=== PATIENT | male | born 1935 | race Caucasian/White ===

== ENCOUNTER → 2019-06-21 16:22 | Outpatient (CLI) | payer MEDICARE, SELFPAY ==
--- NOTE | ~2019-06-21 | XR_ITS ---
XR chest 2V DATE: 06/21/2019 16:34 INDICATION: PA and lateral views TECHNIQUE: PA and lateral views COMPARISON: 04/02/2015 2 view chest FINDINGS: Normal heart size. Aortic calcification and mild tortuosity. No hilar or mediastinal enla rgement. No pulmonary infiltrate or consolidation, pulmonary vascular congestion, pleural effusion o r pneumothorax. Diffuse osteopenia. Degenerative spurring of the thoracic spine. IMPRESSION: No active cardiopulmonary disease Aortic atherosclerosis Reviewed, dictated and finalized at location B.
== END ==
PROVIDERS: PCP Internal Medicine; Visit Provider Internal Medicine
DX: I70.0 Atherosclerosis of aorta (principal); R49.0 Dysphonia; R63.4 Abnormal weight loss
CPT/HCPCS: 71046

== ENCOUNTER 2019-06-29 13:24 | Outpatient (CLI) | payer MEDICARE, SELFPAY ==
--- NOTE | ~2019-06-29 | CT_ITS ---
EXAMINATION: CT abdomen pelvis wo con DATE: 06/29/2019 13:45 INDICATION: Left lower quadrant abdominal pain for 2 weeks. TECHNIQUE: Computed tomography (CT) of the abdomen and pelvis was performed without intravenous contr ast. Automated exposure control and iterative reconstruction technique were employed. Exam dose: 426 .25 mGy-cm total exam DLP. COMPARISON: None. FINDINGS: Middle lobe calcified pulmonary granuloma. Probable small calcified right lower lobe pulmon mary granuloma. There is mild discoid atelectasis or more likely scarring in the middle lobe and lingu la. No infiltrate or consolidation in the lower lung zones. Normal heart size. No pericardial or pleural effusion. There is extensive metastatic disease throughout the liver. There is a huge up to 12 x 12 x 14.5 cm h eterogeneous mass with multiple areas of low attenuation in the left upper quadrant, contiguous with the pancreas, suspicious for a large pancreatic malignancy. The mass is contiguous with the posterior wall of the upper body of the stomach. There are numerous smaller masses which extend into the left perinephric region, likely metastatic le sions. There is prominent left proximal periaortic lymphadenopathy. There are varices, suggesting portal venous hypertension. There is surface nodularity of liver, which is likely due to cirrhosis in combination with extensive metastatic disease. Up to 6.5 x 8.5 cm upper pole right renal cyst. Smaller bilateral renal cysts. No renal calculus or h ydroureteronephrosis is evident. Small calculi are suggested in the dependent aspect of the urinary b ladder. There is prostate enlargement and calcification. There is extensive calcification of the abdominal aorta and at the origin of the left renal artery bu t no abdominal aortic aneurysm. There is mild free fluid in the dependent pelvis. Diverticulosis of the left colon. No bowel obstruction. Bilateral inguinal hernias are noted, the rig ht inguinal hernia containing a portion of the ascending colon without strangulation or obstruction. The left inguinal hernia containing some fluid and fat. There is severe degenerative disease and mild retrolisthesis at L3-4 and L4-5. There is severe degene rative disease at L5-S1. Diffuse osteopenia. No suspicious osteolytic or osteoblastic lesions are identified. 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 Reviewed, dictated and finalized at location B. 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
== END 2019-06-29 13:25 | disposition home or self-care (01) ==
PROVIDERS: PCP Internal Medicine; Visit Provider Internal Medicine
DX: R10.9 Unspecified abdominal pain (principal); R19.02 Left upper quadrant abdominal swelling, mass and lump; K57.30 Diverticulosis of large intestine without perforation or abscess without bleeding; K40.20 Bilateral inguinal hernia, without obstruction or gangrene, not specified as recurrent
CPT/HCPCS: 74176

== ENCOUNTER 2019-06-30 15:19 | Outpatient (CLI) | payer MEDICARE, SELFPAY ==
[2019-06-30 15:32] LABS: Basophils Absolute Auto 0.2 K/mm3 (0.0-0.1); Eosinophils Percent Auto 0.1 % (0-4.4); Hematocrit 39.2 % (42.0-52.0); Immature Granulocyte Absolute 0.06 K/mm3 (0.00-0.031); Immature Granulocyte Percent A 0.4 % (0-0.5); Lymphocytes Absolute Auto 1.65 K/mm3 (0.9-3.2); Lymphocytes Percent Auto 11.1 % (18.3-44.2); Mean Corpuscular HGB Conc 33.2 g/dl (32-36); Mean Corpuscular Hemoglobin 29.5 pg (26-34); Mean Corpuscular Volume 89.1 fl (80-100); Mean Platelet Volume 10.8 fl (7.4-10.4); Monocytes Absolute Auto 1.3 K/mm3 (0.1-0.6); Monocytes Percent Auto 8.7 % (2.6-8.5); Neutrophils Absolute Auto 11.8 K/mm3 (1.3-6.7); Neutrophils Percent Auto 78.7 % (45.5-73.1); Platelet Count Result 259 k/mm3 (150-375); Red Cell Distribution Width 13.2 % (11.5-14.5); White Blood Count 14.9 K/mm3 (4.5-10.0)
[2019-06-30 16:38] LABS: Alanine Aminotransferase 86 U/L (4-50); Albumin Level 3.8 g/dL (3.5-5.1); Alkaline Phosphatase 336 U/L (38-126); Aspartate Amino Transferase 263 U/L (17-59); Bilirubin,Total 1.3 mg/dL (0.2-1.3); Blood Urea Nitrogen 34 mg/dL (9-20); Calcium 9.4 mg/dL (8.4-10.2); Carbon Dioxide 33 mmol/L (22-30); Chloride 95 mmol/L (98-107); Estimated Glomerular Filt Rate > 60; Glucose 122 mg/dL (75-110); Potassium 4.2 mmol/L (3.4-5.0); Sodium 134 mmol/L (137-145)
[2019-07-02 12:17] LABS: CA 19-9 62 U/mL (<34)
== END 2019-06-30 15:20 | disposition home or self-care (01) ==
PROVIDERS: PCP Internal Medicine; Visit Provider Internal Medicine Hematology & Oncology
DX: C25.9 Malignant neoplasm of pancreas, unspecified (principal)
CPT/HCPCS: 36415; 80053; 85025; 86301

== ENCOUNTER 2019-07-09 08:31 | Outpatient (CLI) | payer MEDICARE, SELFPAY ==
[2019-07-05 14:58] VITALS: BMI 21.3
[2019-07-09] VITALS (8 sets, daily range): BP systolic 121–144; BP diastolic 55–67; PULSE 56–86; RESP 15–19; TEMP 36.1–37.1; O2SAT 94–96; BMI 21.1
--- NOTE | ~2019-07-09 | US_ITS ---
EXAMINATION: US biopsy liver DATE: 07/09/2019 11:13 INDICATION: Malignant neoplasm of the pancreas with multiple hepatic masses TECHNIQUE: The procedure including the risks and benefits was discussed with the patient. Risks discu ssed included bleeding and infection. The patient understood the risks and agreed to proceed. The sk in overlying the liver was prepped and draped in usual sterile fashion. Anesthetic was administered with 1% lidocaine subcutaneously. An 18 gauge core biopsy needle was advanced under continuous ultra sound observation to the lesion of interest. 4 core biopsy specimens were obtained. The needle was removed and the entry site was cleaned and dressed. Post procedure ultrasound demonstrated no hemorr luly. FINDINGS: Ultrasound images demonstrate multiple isoechoic masses scattered throughout the liver. Fin al images demonstrate biopsy needle advanced into an approximately 2.4 cm mass in the lateral segment of the left hepatic lobe. IMPRESSION: 1. Successful Ultrasound-guided biopsy of one of multiple hepatic masses concerning for metastatic di sease. Reviewed, dictated and finalized at location A. IMPRESSION: 1. Successful Ultrasound-guided biopsy of one of multiple hepatic masses concer garrett for metastatic disease.
[2019-07-09 09:02] LABS: Mean Platelet Volume 11.3 fl (7.4-10.4); Platelet Count Result 215 k/mm3 (150-375)
[2019-07-09 09:12] LABS: INR 1.1; Prothrombin Time 14.3 Seconds (11.1-14.7)
--- NOTE | 2019-07-09 15:25 | PC.NURSE ---
Patient given discharge instruction from Dr. West. IV access discontinued. Patient to be transported home by .
== END 2019-07-09 15:20 | disposition home or self-care (01) ==
LOC: ANHIMG 08:39 → ANH2MED 10:58
PROVIDERS: PCP Internal Medicine; Visit Provider Internal Medicine Hematology & Oncology
DX: C25.7 Malignant neoplasm of other parts of pancreas (principal)
CPT/HCPCS: 36415; 47000; 76942; 85049; 85610; 88307; 88342

== ENCOUNTER 2019-07-14 11:57 | Emergency (ER) | payer MEDICARE, SELFPAY ==
[2019-07-14] VITALS (8 sets, daily range): BP systolic 117–136; BP diastolic 49–86; PULSE 57–83; RESP 16–18; TEMP 36.8; O2SAT 97–100
--- NOTE | ~2019-07-14 | XR_ITS ---
EXAMINATION: XR chest 2V DATE: 07/14/2019 13:25 INDICATION: Weakness. TECHNIQUE: Frontal and lateral views of the chest were obtained. COMPARISON: Chest 2 views 06/21/2019, CT abdomen and pelvis 06/29/2019 FINDINGS: Again seen is mild elevation of left hemidiaphragm. There is mild atelectasis at left lung base. No pleural effusion or pneumothorax. The heart size is normal. IMPRESSION: 1. Mild atelectasis at left lung base. Reviewed, dictated and finalized at location A.
--- NOTE | 2019-07-14 12:12 | ED.WEAKNESS ---
HPI - Weakness General Chief complaint: Weakness Stated complaint: poor appetite, weakness Time Seen by Provider: 07/14/19 12:03 Source: patient and family Mode of arrival: ambulatory Limitations: no limitations History of Present Illness HPI Narrative: An 84 y/o male pt presents to the ED, with c/o fatigue, generalized weakness and decreased appetite x 1 month. Family at bedside states that pt was Dx with pancreatic CA x 3 weeks ago with readings from a CT scan, and states that the pt's health has declined rapidly since the Dx. Family states that the pt had a biopsy on Friday (07/09/2019) and they are still awaiting the results, and he has a follow-up appointment with Dr. Lutz this Friday. Family notes that the pt had a stool culture done, and they were told the results were normal. Pt is complaining of decreased intake of food and liquid, and intermittent lower ABD pain x 1 month, but denies dysuria, decreased urination, or N/V/D. Complaint: generalized weakness Onset (ago): month(s) (1) Context: other (Dx with pancreatic CA x 1 month ago) Associated symptoms: loss of appetite and other (intermittent lower ABD pain, fatigue) Related Data Allergies Allergy/AdvReac Type Severity Reaction Status Date / Time No Known Allergies Allergy Mild Verified 07/14/19 12:08 Review of Systems Review of Systems: All systems reviewed & are unremarkable except as noted in HPI and below Constitutional: Constitutional: Reports fatigue and Reports weakness (generalized) Gastrointestinal: Gastrointestinal: Reports abdominal pain (intermittent, lower), Denies diarrhea, Denies nausea, Denies vomiting and Reports other (decreased appetite) Genitourinary: Genitourinary: Denies dysuria and Denies other (decreased urination) [facility] Past Medical History Medical History (Updated 07/14/19 @ 16:00 by Laura Villanueva MD) Asthmatic bronchitis , chronic Benign essential hypertension COPE (chronic obstructive pulmonary emphysema) Dysmetabolic syndrome X Mixed hyperlipidemia 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 Type 2 diabetes mellitus without complications Social History Social History (Updated 07/14/19 @ 15:23 by Dominik Tavares [facility] [place]) Smoking status: Never smoker Alcohol intake: current Living arrangements: with family Additional living arrangements comments: lives at home with spouse Gender identity (if verbalized by the patient): Male Exam Const: General: cooperative, no acute distress and alert Nutritional Appearance: well nourished Orientation/consciousness: patient oriented x3 Limitations: no limitations Other: generalized weakness, needs assistance to sit up. HENMT: Mouth: Yes lip normal and Yes dry mucous membranes Resp: Effort & Inspection: normal respiratory effort Auscultation: clear to auscultation bilaterally Cardio: Rate: regular rate Rhythm: regular rhythm Heart sounds: no murmurs GI: GI Palp: Yes Soft to palpation and No Tenderness to palpation present (GI) Auscultation: normal bowel sounds Skin: General skin exam: normal color Neuro: General: patient oriented x3 Cognition (Neuro): normal cognition Speech: normal speech Extrem: General: normal to inspection, full ROM, pedal edema bilaterally and other (pedal pulses present) Psych: Mental Status: mental status grossly normal Affect: normal affect Attitude: cooperative Course Course Emergency Course: Patient dehydrated and chronically ill-appearing. Patient has not been eating and drinking. Patient given liter of IV fluids prior to discharge. Patient not showing orthostatic vital sign changes or gross abnormalities in his lab values other than slight increase in BUN from 34 on June 29 to 48 today. Patient labs otherwise remained fairly stable. Patient has appointment with oncologist in 2 days. Advised to increase his fluid intake significantly and to follow-up at his appointment for further evaluation an
[2019-07-14 13:10] LABS: Add Urine Microscopic? YES; Appearance Urine Clear (Clear); Bacteria Urine Trace /hpf; Bilirubin Urine 1+ (Negative); Blood Urine Negative (Negative); Color Urine Amber (Yellow); Glucose Urine UA Negative (Negative); Ketones Urine 1+ mg/dL (Negative); Leukocyte Esterase Ur Negative LEU/UL (Negative); Mucus Urine Moderate /lpf; Nitrate Urine Negative (Negative); Protein Urine 1+ mg/dL (Negative); RBC Urine 0-2 /hpf (0-2); Specific Grav Ur 1.026 (1.001-1.035); Squamous Epithelial Cell Urine Rare /hpf (Few)
[2019-07-14 13:14] LABS: Basophils Absolute Auto 0.1 K/mm3 (0.0-0.1); Basophils Percent Auto 0.7 % (0.2-1.2); Eosinophils Percent Auto 0.1 % (0-4.4); Hematocrit 33.9 % (42.0-52.0); Immature Granulocyte Absolute 0.11 K/mm3 (0.00-0.031); Immature Granulocyte Percent A 0.7 % (0-0.5); Lymphocytes Absolute Auto 1.18 K/mm3 (0.9-3.2); Lymphocytes Percent Auto 7.8 % (18.3-44.2); Mean Corpuscular HGB Conc 32.4 g/dl (32-36); Mean Corpuscular Hemoglobin 29.6 pg (26-34); Mean Corpuscular Volume 91.1 fl (80-100); Mean Platelet Volume 11.3 fl (7.4-10.4); Monocytes Absolute Auto 1.2 K/mm3 (0.1-0.6); Monocytes Percent Auto 7.9 % (2.6-8.5); Neutrophils Absolute Auto 12.6 K/mm3 (1.3-6.7); Neutrophils Percent Auto 82.8 % (45.5-73.1); Platelet Count Result 223 k/mm3 (150-375); Red Blood Count 3.72 M/mm3 (4.6-6.20); Red Cell Distribution Width 16.3 % (11.5-14.5); White Blood Count 15.1 K/mm3 (4.5-10.0)
[2019-07-14 13:27] LABS: Alanine Aminotransferase 74 U/L (4-50); Albumin Level 3.3 g/dL (3.5-5.1); Alkaline Phosphatase 408 U/L (38-126); Aspartate Amino Transferase 341 U/L (17-59); Bilirubin,Total 2.6 mg/dL (0.2-1.3); Blood Urea Nitrogen 48 mg/dL (9-20); Calcium 8.9 mg/dL (8.4-10.2); Carbon Dioxide 30 mmol/L (22-30); Chloride 96 mmol/L (98-107); Estimated CRCL calculation 46 ml/min; Estimated Glomerular Filt Rate > 60; Glucose 114 mg/dL (75-110); Potassium 4.1 mmol/L (3.4-5.0); Sodium 137 mmol/L (137-145)
[2019-07-14] MEDS: LACTATED RINGERS 1,000 ML 999 ML IV CONT (15:10)
== END 2019-07-14 16:11 | disposition home or self-care (01) ==
PROVIDERS: Emergency Provider Emergency Medicine; PCP Internal Medicine
DX: E86.0 Dehydration (principal); C25.9 Malignant neoplasm of pancreas, unspecified; C79.9 Secondary malignant neoplasm of unspecified site; R53.1 Weakness; L89.159 Pressure ulcer of sacral region, unspecified stage; J44.9 Chronic obstructive pulmonary disease, unspecified; E78.2 Mixed hyperlipidemia; E88.81 Metabolic syndrome and other insulin resistance; E11.69 Type 2 diabetes mellitus with other specified complication; R80.9 Proteinuria, unspecified; R91.8 Other nonspecific abnormal finding of lung field; Z85.828 Personal history of other malignant neoplasm of skin
CPT/HCPCS: 36415; 71046; 80053; 81001; 85025; 99283; J7120